=== PATIENT | male | born 1940 | race African-American/Black ===

== ENCOUNTER 2018-07-25 19:28 | Inpatient (IN) | payer OTHER ==
[~2018-07-25] VITALS: Ht 172.7 cm; Wt 64.9 kg
--- NOTE | ~2018-07-25 | HC ---
[facility] [place] [address] CONSULTATION Name: SERGO MCCORMICK Room #: 462-[facility] IN M.R.#: [id number] Admission: 07/25/18 ������������������ Attend Phys: Jose Awan MD Discharge: ������������������ Date of : 40 Report #: [id number] THIS REPORT FOR: //name// CC: Jose Stephens PALLIATIVE CARE CONSULTATION REQUESTING PHYSICIAN: Dr. Awan. HISTORY OF PRESENT ILLNESS: The patient is a 78-year-old male who presented to [facility] on 07/25/2018. He presented at that time with altered mentation. He has a history of vascular dementia, hypertension. He presented from [facility]. He had become nonverbal and inactive. Workup including significant things, chest x-ray and urinalysis were without apparent origin. He was found to have severe bilateral symmetric white matter disease on his CT scan. Subsequent to this, the patient had an MRI performed and he is found to have a significant amount of vascular infarct to his brain. There is extensive bilateral symmetric abnormal FLAIR within the parietal, occipital and posterior temporal lobes, significant effects on his overall mentation and also his ability to complete even the most basic movement or responses. The patient is able to grasp with right hand, but he is not able to follow commands. Per se, he will grasp, but not release. The patient currently is n.p.o., but is not taking p.o. intake, is not responsive in any way. At this time, he does not cooperate for any kind of further examination. His daughter is a decision maker for him, although there are several family members involved in his care. PAST MEDICAL HISTORY: Significant for vascular dementia, history of cerebrovascular disease, also hypertension and insomnia. MEDICATIONS: Amlodipine, Depakote, Zyprexa, Seroquel, trazodone, Ativan. ALLERGIES: No known drug allergies. FAMILY HISTORY: Noncontributory. SOCIAL HISTORY: Again, there is a daughter involved in decision making process for the patient whom I have spoken with today. This is Elisa Fortune, . REVIEW OF SYSTEMS: Unable to obtain at this time due to present medical condition. PHYSICAL EXAMINATION: VITAL SIGNS: These include a temperature of 36.4, pulse 74, respirations 18, blood pressure 166/66, 93% on room air. [facility] [address] [place] [address] CONSULTATION Name: SERGO MCCORMICK Room #: 462-P [facility] IN .R.#: [id number] Admission: 07/25/18 ������������������ Attend Phys: Jose Awan MD Discharge: ������������������ Date of : 40 Report #: [id number] GENERAL: Unable to assess orientation. He is nonresponsive at this time to any kind of stimuli. HEENT: Unable to assess fully at this time due to noncooperation. CARDIOVASCULAR: Regular rate and rhythm without murmur at this time. RESPIRATORY: Anteriorly clear to auscultation bilaterally. ABDOMEN: Soft, diminished bowel sounds. No grimacing to palpation. EXTREMITIES: He will grasp with right hand, but will not release. This does not appear to be following any kind of command directly. LABORATORY DATA: Hemoglobin 13.4, white blood cells 14.2, creatinine 0.9 on the 8th. ASSESSMENT AND PLAN: 1. Cerebrovascular accident. He has had a significant process involved based on his imaging. At this time, I believe the patient would have much difficulty with recovery overall even if he were to get pass this initial episode of unresponsiveness. He is currently not able to take p.o. safely in any way. I have discussed this with daughter at this time and discussed the possibility that a PEG tube placement would not be beneficial given his preexisting dementia prior to having the cerebrovascular accident and that his quality of life would not be supported by this intervention. I have discussed that I would like to meet with his many family as necessary in order to have a decision made as she states that she is not comfortable with making decision alone. I would like to arrange a family meeting. She is in the process of discussing with other family members. She states that it is possible they would have to be as late as early next week prior to having this meeting. I have discussed again also on the possibility of comfort and hospice care at this time, but again she is uncomfortable with making any kind of decision at this time. I did spend approximately 35 minutes in discussion of advanced care planning today. We have not currently changed his code status, although I believe that he would be medically futile to pursue any kind of CPR and/or intubation given his overall medical status. 2. Delirium. Again, this is likely due to significant cerebrovascular accident, currently, unable to give responsiveness. It is possible that the severity of his cerebrovascular accident alone has led to him being unable to respond to us fully and be unable to participate in any significant ADLs in the future, which I have expressed to daughter at this time. I appreciate a Neurology consultation and I appreciate their wanting him to continue aspirin until we have knowledge, otherwise if he were to pursue a palliative care intervention. Did discuss with family that we could continue administering fluids at this time, but again, we would need to have a decision with regards to tube feedings and/or PEG tube placement in order to proceed forward, although I did again discuss with her the likelihood that would not be beneficial to the patient. Thank you very much for the consultation. I will update when I know more [facility] [address] [place] [address] CONSULTATION Name: SERGO MCCORMICK Room #: 462-P ADM IN M.R.#: [id number] Admission: 07/25/18 ������������������ Attend Phys: Jose Awan MD Discharge: ������������������ Date of : 40 Report #: [id number] information. I have given her my contact information to call me back with regards to setting up a family meeting. ��������������������������������������������� ���������������������������������������� By: ��������������������������������������������� 58 58 Maldonado Hussein DO /gaston
[2018-07-25 19:29] VITALS: BP 140/83
[2018-07-25 20:07] LABS: HEMATOCRIT 41.9 % (42.0-52.0); MCHC 33.5 g/dL (28.0-37.0); MCV 92.5 fL (80.0-100.0); RBC 4.53 mil/uL (4.50-6.00); RDW 13.7 % (10.5-14.5); WBC 15.5 thou/uL (4.0-11.0)
[2018-07-25 20:09] LABS: AMP/METHAMP Negative (Negative); BARBITURATES Negative (Negative); BENZODIAZEPINES Negative (Negative); COCAINE Negative (Negative); METHADONE Negative (Negative); OPIATES Negative (Negative); PCP Negative (Negative)
[2018-07-25 20:16] LABS: ANION GAP 9 mmol/L (7-16); BUN 21 mg/dL (7-18); CALCIUM 9.1 mg/dL (8.5-10.1); CHLORIDE 105 mmol/L (98-107); CO2 30 mmol/L (21-32); CREATININE 1.2 mg/dL (0.7-1.3); GLUCOSE 106 mg/dL (74-106); POTASSIUM 3.5 mmol/L (3.5-5.1); SODIUM 144 mmol/L (136-145)
[2018-07-25 20:25] LABS: TROPONIN-I <0.06 ng/mL (<0.06)
[2018-07-26 00:19] VITALS: BP 166/82
[2018-07-26] MEDS ORDERED: NORVASC5 MG PO (00:22)
[2018-07-26] MEDS ORDERED: ZYPREXA2.5 MG PO (00:23)
[2018-07-26] MEDS ORDERED: DEPAKOTE125 MG PO (00:23)
[2018-07-26] MEDS ORDERED: TRAZODONE HCL50 MG PO (00:24)
[2018-07-26] MEDS ORDERED: SEROQUEL 25 MG25 M1 PO (00:24)
[2018-07-26] MEDS ORDERED: ARTIFICIAL TEAR15 M1 OPHTHALMIC (00:25)
[2018-07-26] MEDS ORDERED: LORAZEPAM 22 MG/1 ML IM (00:26)
[2018-07-26 01:15] VITALS: BP 171/88
[2018-07-26 01:31] LABS: URINE BILIRUBIN NEGATIVE (Negative); URINE BLOOD 2+ (Negative); URINE CLARITY CLEAR; URINE COLOR YELLOW; URINE GLUCOSE-RANDOM* TRACE (Negative); URINE KETONES 2+ (Negative); URINE LEUKOCYTES-REFLEX NEGATIVE (Negative); URINE NITRITE-REFLEX NEGATIVE (Negative); URINE PROTEIN (DIPSTICK) TRACE (Negative)
[2018-07-26 01:39] LABS: SQUAMOUS 0-3 Few /LPF (0-3); URINE WBC-REFLEX 0-5 Rare /HPF (0-5)
[2018-07-26 01:40] LABS: BACTERIA-REFLEX 1-9 Few /HPF (None Seen); CASTS None Seen /LPF (None Seen); CRYSTALS None Seen /LPF (None Seen); MUCUS 0-3 Light strn/LPF (None Seen); URINE RBC 3-10 Few /HPF (0-2)
[2018-07-26 03:47] VITALS: BP 159/66
--- NOTE | 2018-07-26 04:24 | NUR ---
admit pt admitted from ed with ams, elevated wbc, and elevated crp. pt non responsive, to verbal stimuli, does pull away from painful stimuli. skin clean dry intact, valencia placed, tele intact reading sr, ivf's infusing as ordered continue poc.
[2018-07-26 05:37] LABS: HEMOGLOBIN 13.4 gm/dL (14.0-18.0); MCH 31.2 pg (26.0-34.0); MCHC 33.6 g/dL (28.0-37.0); MCV 92.8 fL (80.0-100.0); RBC 4.31 mil/uL (4.50-6.00); RDW 13.5 % (10.5-14.5); WBC 14.2 thou/uL (4.0-11.0)
[2018-07-26 05:56] LABS: ALBUMIN 2.5 g/dL (3.4-5.0); CALCIUM 8.3 mg/dL (8.5-10.1); CREATININE 0.9 mg/dL (0.7-1.3); POTASSIUM 3.6 mmol/L (3.5-5.1); TOTAL BILIRUBIN 0.4 mg/dL (<0.1-1.0); TOTAL PROTEIN 6.9 g/dL (6.4-8.2)
[2018-07-26 07:00] LABS: FOLIC ACID 17.9 ng/mL (8.6-58.9); TSH 0.668 uIU/mL (0.358-3.740)
[2018-07-26 07:07] VITALS: BP 140/67
--- NOTE | 2018-07-26 13:08 | NUR ---
TOWARDS POC PT WAS UNRESPONSIVE TO VERBAL COMMAND THIS AM. REASSESSMENT THIS NOON DONE, PT ABLE TO WAKE UP AND RESPOND TO VERBAL STIMULI. PT SEEMS LETHARGIC. FALL BUNDLE IN PLACE, MRI RESULTS ARE IN. WILL CONTINUE TO MONITOR.
[2018-07-26 13:55] VITALS: BP 178/83
--- NOTE | 2018-07-26 14:16 | EKG ---
[address] [address] ELECTROCARDIOGRAM REPORT Name: SERGO MCCORMICK Room #: 458-P ADM IN M.R.#: [id number] ������������������ Admission: 07/25/18 ������������������ Attend Phys: Jose Awan MD Discharge: ������������������ Date of : 40 Report #: [id number] ����������������������������������������������������������������� [id number] THIS REPORT FOR: //name// [facility] ED Test Date: 2018-07-25 Test Time: 20:41:40 Pat Name: SERGO MCCORMICK Department: Room: [facility] Gender: M Sales Promotion Coordinator: farideh : 1940 Requested By: Bakari Fierro Order Number: [id number] MD: Joseluis Gonsalves Measurements Intervals [place] Rate: 90 P: 67 NM: 129 QRS: 16 QRSD: 86 T: 56 QT: 350 QTc: 429 Interpretive Statements Sinus rhythm Atrial premature complex RSR' in V1 or V2, probably normal variant Left ventricular hypertrophy with repolarization abnormality No previous ECG available for comparison Electronically Signed On 07-26-2018 14:16:27 CDT by Joseluis Gonsalves [email or web address] ��������������������������������������������� <ELECTRONICALLY SIGNED> ���������������������������������������� By: Joseluis Gonsalves MD, [facility] ��������������������������������������������� 07/26/18 1416 40 40 Joseluis Gonsalves MD, [facility] /EPI
[2018-07-26 16:55] LABS: APTT 28.8 Seconds (24.5-32.8); INR 1.2; PROTIME 12.9 Seconds (9.3-11.4)
[2018-07-26 18:58] VITALS: BP 144/64
[2018-07-27 03:04] VITALS: BP 169/78
--- NOTE | 2018-07-27 03:38 | NUR ---
ASSUMED CARE AROUND 1900. OPENS EYES SPONTANEOUSLY. NON VERBAL. DOES NOT FOLLOW ANY COMMAND. IV REPLACED. RVP COLLECTED. VELASQUEZ INTACT. NO S/S ACUTE DISTRESS NOTED OR REPORTED AT THIS TIME. WILL CONT TO MONITOR FOR ANY CHANGES IN CONDITION.
[2018-07-27 07:12] VITALS: BP 163/61
[2018-07-27 08:07] LABS: LYME ANTIBODY SCREEN* <0.91 ISR (0.00-0.90)
--- NOTE | 2018-07-27 09:53 | NUR ---
Nutrition: Admitted wtih AMS, elevated WBC, elevated CRP. Seen for clemente score 15. Hx of dementia. Diet NPO, EEG/MRI this AM. Spoke with dtr for assessment. States pt appetite has been lower recently, but is usually good with good intake. Typically eats protein foods. Unsure of UBW. Current 152 lbs with BMI 23=normal. Reports 30 lbs wt loss x1 year after dementia dx due to decrease in appetite-16.5%. Unsure if pt drinks supplements at SNF. Will order Ensure once diet advances. Low nutrition risk for now.
--- NOTE | 2018-07-27 10:07 | HC ---
[facility] [place] [address] CONSULTATION Name: SERGO MCCORMICK Room #: 458-P ADM IN M.R.#: [id number] Admission: 07/25/18 ������������������ Attend Phys: Jose Awan MD Discharge: ������������������ Date of : 40 Report #: [id number] THIS REPORT FOR: //name// CC: Jose Stephens DATE OF SERVICE: 07/26/2018 INFECTIOUS DISEASE CONSULTATION: REASON FOR CONSULTATION: Evaluate possible meningoencephalitis. HISTORY OF PRESENT ILLNESS: The patient is a 78-year-old with underlying vascular dementia, hypertension who was transferred from the custodial with change in mental status. Typically, he is alert and oriented and verbal, reasonably active. Over the last 24 hours, he has become nonverbal and inability to respond appropriately. He was brought into the Emergency Room. He has had temperature up to 38.2 degrees. He has got leukocytosis. He is unable to give any information. He resists any movements. There has been no nausea or vomiting. There has been no cough. No diarrhea. He now has an indwelling Munguia catheter. There has been no injury of note. There have been no rashes or decubiti reported. There has been no travel. There was some report of influenza at the custodial previously. Unclear if he was on antiviral prophylaxis. The patient was unable to give any further details regarding review of systems. ALLERGIES: None. MEDICATIONS: As noted on his MAR, having been started last evening on vancomycin, ceftriaxone and ampicillin. PAST MEDICAL HISTORY: Vascular dementia with behavioral disturbance, hypertension, urinary incontinence, vitamin D deficiency, insomnia. FAMILY HISTORY: Noncontributory. SOCIAL HISTORY: Nonsmoker, no significant alcohol intake. No reported tuberculosis exposure. No history of HIV. PHYSICAL EXAMINATION: VITAL SIGNS: Afebrile, vital signs were stable. GENERAL: He was awake, but only would answer mumbling. He would not follow commands. SKIN: Without rash or decubitus. HEENT: No palpable adenopathy. He had increased muscle tone throughout. [facility] [address] [place] [address] CONSULTATION Name: SERGO MCCORMICK Room #: [address] [place] [address] IN M.R.#: [id number] Admission: 07/25/18 ������������������ Attend Phys: Jose Awan MD Discharge: ������������������ Date of : 40 Report #: [id number] EYES: With mild conjunctivitis on the right. MOUTH: Without mucositis. NECK: Similar to the rest of his increased muscle tone. Did not appear tender to flexion. No palpable adenopathy or thyromegaly. CHEST: Clear. HEART: Regular, without murmur, gallop or rub. ABDOMEN: Soft, no hepatosplenomegaly or mass appreciated. GENITOURINARY: External genitalia without mass or lesion, has an indwelling Munguia catheter. RECTAL: Not performed. NEUROLOGIC: Very difficult to have the patient roll over. He resisted any movement. He had good strength throughout upper and lower extremities. Had difficulty bending his extremities. Reflexes appeared normal. Unable to assess sensation. Mood was sedate. LABORATORY STUDIES: CT scan of the head showed diffuse changes consistent with PRES syndrome. MRI scan showed diffuse changes more consistent with ischemia. CT angio of the neck was negative. Abdominal x-ray and chest x-ray were negative. Sodium 144, potassium 3.6, bicarbonate 28, creatinine 0.9. Liver function test normal. Ammonia 14, albumin 2.5. Hemoglobin 13.4, platelet count 237,000, white count 14.2. Urinalysis 2+ ketones, 2+ blood. Lactate was 2.2. IMPRESSION: A 78-year-old with underlying dementia with acute change in mental status and diffuse cerebral changes most consistent with vascular insult. His fever and leukocytosis; however, does not fit with this current presentation. We will still need to rule out infectious cause. Blood cultures have been obtained. Lumbar puncture was attempted last night, but unable to obtain any fluid. Would be concerned about viral, bacterial and fungal etiologies. RECOMMENDATION: We will continue empiric antibiotic coverage. Obtain lumbar puncture. Neurology to evaluate. Obtain EEG. Also, check serologic studies. We will adjust his antibiotics pending lumbar puncture. ��������������������������������������������� <ELECTRONICALLY SIGNED> ���������������������������������������� By: Mumtaz Lopez MD ��������������������������������������������� 07/27/18 1007 1429 0318 Mumtaz Lopez MD /nt
[2018-07-27 11:28] LABS: CSF PROTEIN 183 mg/dL (15-45); VOLUME 12 ml
[2018-07-27 11:29] LABS: CSF COLOR COLORLESS
[2018-07-27 11:30] LABS: CSF CLARITY CLEAR; CSF RBC 4 /mm3; CSF WBC 2 /mm3 (0-10)
[2018-07-27 14:40] VITALS: BP 153/70
--- NOTE | 2018-07-27 14:44 | NUR ---
TOWARDS POC PT ALERT AND AWAKE AT THIS MOMENT, FIDGETING ON BLANKETS. PT HAD HIS LUMBAR PUNCTURE THIS AM, AWAITING RESULTS. NEUROLOGIST SPOKE TO ANDREEA THIS AM. ANDREEA WANTED TO TALK TO HOSPITALIST TOMORROW. FALL BUNDLE IN PLACE, WILL CONTINUE TO MONITOR.
--- NOTE | 2018-07-27 15:18 | NUR ---
REFERRAL WAS SENT TO [facility] MCDERMOTT WITH [facility] HAD MENTIONED THEM TO PT AND FAMILY. CM SPOKE WITH COURTNR[facility] THEIR LIAISON AND SHE INDICATED THAT THEY CAN ACCEPT HIM MEDICALLY AND THAT SHE WILL VISIT PT TOMORROW MORNING. PT IS AWARE. CM TO FOLLOW INDICATED WITH DC PLANNING.
--- NOTE | 2018-07-27 15:27 | 2DMMODE ---
[facility] [address] [place] [address] 2 D/M-MODE ECHOCARDIOGRAM Name: SERGO MCCORMICK Room #: 458-P [facility] IN .R.#: [id number] ������������� Admission: 07/25/18 ������������� Attend Phys: Jose Awan MD Discharge: ��� ������������� ��� Date of : 40 Date of Service: 07/27/18 1527 �� Report #: [id number] �������� ��������������������������������������������[id number] THIS REPORT FOR: //name// APPROVED REPORT Study performed: 07/27/2018 13:42:35 EXAM: Comprehensive 2D, Doppler, and color-flow Echocardiogram Patient Location: Bedside Room #: [facility] Status: routine BSA: 1.82 HR: 76 bpm BP: 163/61 mmHg Rhythm: NSR, PVCs Other Information Study Quality: Good Technically limited study due to highly uncooperative patient. Not all measurements taken. Indications CVA Echo Enhancing Agent Indication: Rule out Shunt Agent(s) / Amount(s) Used: Agitated Saline 6 cc 2D Dimensions IVSd: 11.76 (7-11mm) LVOT Diam: 21.27 (18-24mm) LVDd: 41.03 mm PWd: 11.80 (7-11mm) LVDs: 28.86 (25-40mm) Aortic Root: 32.85 mm Aortic Valve AoV Peak Nickolas.: 1.32 m/s AO Peak Gr.: 6.97 mmHg LVOT Max P.70 mmHg LVOT Max V: 0.96 m/s HECTOR Vmax: 2.59 cm2 Mitral Valve E/A Ratio: 0.8 MV Decel. Time: 233.72 ms MV E Max Nickolas.: 0.61 m/s [facility] [address] [place] [address] 2 D/M-MODE ECHOCARDIOGRAM Name: SERGO MCCORMICK Room #: 458-P ADM IN .R.#: [id number] ������������� Admission: 07/25/18 ������������� Attend Phys: Jose Awan MD Discharge: ��� ������������� ��� Date of : 40 Date of Service: 07/27/18 1527 �� Report #: [id number] �������� ��������������������������������������������[id number] MV A Nickolas.: 0.73 m/s MV PHT: 67.78 ms Pulmonary Valve PV Peak Nickolas.: 1.24 m/s PV Peak Gr.: 6.16 mmHg Tricuspid Valve TR Peak Nickolas.: 2.71 m/s RAP Estimate: 5.00 mmHg TR Peak Gr.: 29.31 mmHg PA Pressure: 34.00 mmHg Left Ventricle The left ventricle is normal size. There is normal LV segmental wall motion. Mild concentric left ventricular hypertrophy. Left ventricular systolic function is normal. LVEF is 60-65%. Mild diastolic dysfunction is present (impaired relaxation pattern). Right Ventricle The right ventricle is normal size. The right ventricular systolic function is normal. Atria The left atrium size is normal. No shunting noted by contrast bubble injection. The right atrium size is normal. Aortic Valve Aortic valve leaflets are mildly thickened, trileaflet. No aortic regurgitation. There is no aortic valvular stenosis. Mitral Valve The mitral valve is normal in structure. Mild mitral regurgitation. Tricuspid Valve The tricuspid valve is normal in structure. Trace tricuspid regurgitation. Estimated PAP is 35mmHg. Pulmonic Valve Pulmonic valve is not well visualized. There is no pulmonic valvular regurgitation. Great Vessels The aortic root is normal in size. Ascending aorta is not well visualized. IVC is normal in size and collapses >50% with inspiration. [facility] [address] [place] [address] 2 D/M-MODE ECHOCARDIOGRAM Name: SERGO MCCORMICK Room #: 458-P ADM IN M.R.#: [id number] ������������� Admission: 07/25/18 ������������� Attend Phys: Jose Awan MD Discharge: ��� ������������� ��� Date of : 40 Date of Service: 07/27/18 1527 �� Report #: [id number] �������� ��������������������������������������������[id number] Pericardium There is no pericardial effusion. <Conclusion> Left ventricular systolic function is normal. There is normal LV segmental wall motion. LVEF is 60-65%. Mild diastolic dysfunction No shunting noted by contrast bubble injection. Aortic valve leaflets are mildly thickened, trileaflet. No aortic regurgitation or stenosis. The mitral valve is normal in structure. Mild mitral regurgitation. Trace tricuspid regurgitation. Estimated pulmonary artery pressure of 35mmHg. There is no pericardial effusion. ��������������������������������������������� <ELECTRONICALLY SIGNED> ���������������������������������������� By: Joseluis Gonsalves MD, [facility] ��������������������������������������������� 07/27/18 1527 1527 1527 Joseluis Gonsalves MD, FAC /INF
--- NOTE | 2018-07-27 16:40 | NUR ---
PT ADMITTED RELATED TO ams,elevated wbc, elevated crp. CM REVIEWED CHART AND SPOKE WITH CARE TEAM. CM MET WITH PT AT BEDSIDE THIS DAY. PT WASN'T ABLE TO ANSWER ASSESSMENT QUESTIONS. CM ATTEMPTED TO CONTAT PT'S DPOA JONITA AND CM LEFT TWO VOICEMAILS AND HASN'T YET RECIEVED A RESPONSE. IT IS ANTIPCATED THAT PT IS TO RETURN TO [facility] ONCE MEDICALLY STABLE. CM TO FOLLOW INDICATED WITH DC PLANNING.
[2018-07-27 19:10] LABS: SYPHILIS AB Negative (Negative)
[2018-07-27 20:13] VITALS: BP 174/68
--- NOTE | 2018-07-28 06:44 | NUR ---
Assumed care at 1845. Pt resting in bed. VSS. AOX1. None verbal. On bedrest. Munguia intact. Family at bedside. No identified needs at the moment. Will continue to monitor.
[2018-07-28 07:30] VITALS: BP 167/73
[2018-07-28 13:55] VITALS: BP 166/66
--- NOTE | 2018-07-28 14:15 | NUR ---
DR. RODRIGEZ WAS CONSULTED AND HE SPOKE WITH PT'S DTR ABOUT PALLIATIVE CARE SERVICES. IT WAS INDCIATED THAT SHE IS INTERESTED IN HAVING A FAMILY MEETING EARLY NEXT WEEK. PHYSICIAN WAS NOTIFIED. CM TO FOLLOW INDICATED WITH DC PLANNING.
--- NOTE | 2018-07-28 19:46 | NUR ---
ASSUMED CARE 0700. SEDATED THIS MORNING. BECAME ALERT AFTER 1500. DOES NOT RESPOND TO NAME. NON-VERBAL. WILL PULL AT VELASQUEZ USES PILLOW TO DISTRACT PT FROM PULLING. MOVED PT CLOSER TO NURSING STATION FOR OVERSIGHT. FALL PRECAUTIONS IN PLACE. DOES NOT USE CALL LIGHT.
[2018-07-28 20:09] VITALS: BP 152/78
[2018-07-29 04:52] VITALS: BP 148/59
--- NOTE | 2018-07-29 07:44 | NUR ---
patient alert, oriented this shift. no s/s of pain or discomfort. pericare and barrier cream applied as needed. cath care done this shift. patient turned q shift. patient in bed asleep at this time breathing regular and unlaboured.
[2018-07-29 07:47] VITALS: BP 175/61
[2018-07-29 15:00] VITALS: BP 187/54
[2018-07-29 19:29] VITALS: BP 174/55
--- NOTE | 2018-07-29 19:31 | NUR ---
ASSUMED CARE 0700. SLEEPING UNTIIL 1400. PT NON VERBAL. BATH GIVEN. REPOSITIONS PATIENT TOLERATED. FULL FALL PRECATIONS IN PLACE. CLOSE TO NURSE STATION FOR OVERSIGHT DOESN'T USE CALL LIGHT.
--- NOTE | 2018-07-30 03:40 | NUR ---
PATIENT AOX1 CONFUSED AND FORGETFUL. PATIENT IS NO VERBAL PERICARE AND BARRIER CREAM APPLIED NEEDED. PATIENT TURNED Q 2 HOURS. PATIENT IN BED ASLEEP AT THIS TIME BREATHING REGULAR AND UNLABOURED.
[2018-07-30 07:05] VITALS: BP 167/92
[2018-07-30 13:06] LABS: HSV 1 DNA Negative (Negative); HSV 2 DNA Negative (Negative)
[2018-07-30 15:05] VITALS: BP 155/81
--- NOTE | 2018-07-30 15:35 | NUR ---
ASSUMED CARE 0700. SLEPT THROUGH MORNING AND BECAME ALERT AFTER 1400, REQUIRES REPOSITONS AND DIVERSION FORM PULLING VELASQUEZ AND IV LINES. FAMILY BEDSIDE AT THIS TIME. FALL PRECAUTIONS IN PLACE.
[2018-07-30 19:55] VITALS: BP 153/64
[2018-07-31 06:08] VITALS: BP 151/62
--- NOTE | 2018-07-31 06:31 | NUR ---
PATIENT IS NON VERBAL. ALERT AND ORIENTED. NO S/S OF PAIN OR DISCOMFORT. TURNED Q 2 HOURS. CATH CARE DONE, PERICARE AND BARRIER CREAM APPLIED THIS SHIFT. PATIENT IN BED ASLEEP AT THIS TIME BREATHING REGULAR AND UNLABOURED.
[2018-07-31 07:48] VITALS: BP 157/78
[2018-07-31 10:40] LABS: HSV PCR SOURCE CSF
--- NOTE | 2018-07-31 13:11 | NUR ---
DP SENT REFERRAL TO HOSPICE HOUSE, PATIENT READY FOR DC TODAY.
--- NOTE | 2018-07-31 14:00 | NUR ---
BRI CM CALLED AND SPOKE [facility] PT'S DTR ODELL AND SHE INDICATED THAT SHE HAD DISCUSSED WITH PHYSICIAN AND FAMILY AND THAT THEY ARE RECEPTIVE TO HOSPICE COMING OUT AND ASSESSING PT FOR POSSIBLE ADMISSION TO HOSPICE HOUSE. CM INDICATED THAT IF PT WASN'T APPROPRIATE FOR HOUSE ADMISSION THAT AN ALTERNATIVE DC PLAN WOULD BE FOR PT TO GO TO A FACILITY LIKE BACK TO [facility] WITH HOSPICE SERVICES. SHE INDICATED SHE DIDN'T WANT PT RETURNING TO [facility]. CM EMAILED HER LIST OF SKILLED FACILITIES TO REVIEW TO DETERMINE WHERE THEY WAN REFERRALS SENT. CM TO FOLLOW INDICATED WITH DC PLANNING.
[2018-07-31 15:21] VITALS: BP 139/70
--- NOTE | 2018-07-31 16:16 | NUR ---
HOMER INDICATED THAT PT DOESN'T MEET CRITERIA TO ADMIT TO THE HOSPICE HOUSE AT THIS TIME. SHE STATED THAT ALTHOUGH PT HAS SYMPTOMS HE ISN'T BEING TREATED FOR THEM RIGHT NOW. BRI NOTIFIED PT'S DTR AND SHE ASKED THAT REFERRAL BE SENT TO [facility] FOR REVIEW FOR POSSIBLE ADMISSION. BRI CALLED AND SPOKE WITH VLADIMIR THERE AND SHE INDICATED THEY MIGHT HAVE A MALE MEDICAID BED OPEN TOMORROW. REFERRAL FAXED. CM TO FOLLOW INDICATED WITH DC PLANNING.
[2018-07-31 19:11] LABS: ADENOVIRUS Negative (Negative); INFLUENZA A Negative (Negative); INFLUENZA B Negative (Negative); METAPNEUMOVIRUS Negative (Negative); PARAINFLUENZA 1 Negative (Negative); PARAINFLUENZA 2 Negative (Negative); PARAINFLUENZA 3 Negative (Negative); RHINOVIRUS Negative (Negative); RSV A Negative (Negative); RSV B Negative (Negative)
[2018-07-31 19:31] VITALS: BP 162/51
--- NOTE | 2018-07-31 20:10 | NUR ---
ASSUMED CARE 0700. PT NON-RESPONSIVE TO NAME ONLY PAIN STIMULI. SLEEPING THIS MORING AWAKENED APPROXIMATLY 1400. BECOMES RESTLESS WITH MINIMAL DIVERSION. FALL PRECAUTIONS IN PLACE. DOES NOT USE CALL LIGHT.
[2018-08-01 04:15] VITALS: BP 166/65
[2018-08-01 07:44] VITALS: BP 162/53
[2018-08-01 14:45] VITALS: BP 154/58
--- NOTE | 2018-08-01 17:09 | NUR ---
CM CALLED [facility] TWICE THIS DAY TO CHECK IN STATUS OF REFERRAL. THEY WERE STILL REVIEWEING IT. VLADIMIR CALLED BACK THIS AFTERNOON AND INDICATED THAT THEY AREN'T ABLE TO ACCEPT PT FOR ADMISSION. CM CALLED PT'S DTR AND LEFT A VOICEMAIL REQUESTING ADDITIONAL FACILITIES THEY WOULD LIKE REFERRALS SENT TO. CM TO FOLLOW INDICATED WITH DC PLANNING.
[2018-08-01 19:53] VITALS: BP 145/75
--- NOTE | 2018-08-01 19:57 | NUR ---
PT A&O TO SELF, NO SIGNS OF PAIN, VSS. PT HAS RESTED IN BED WITH NO ANXIETY OR AGITATION. FAMILY HAS BEEN UP TO VISIT PT. PER HOSPICE HOUSE, PT IS NOT A CANDIDATE. IV AND VELASQUEZ PATENT, NO SIGNS OF DISTRESS. BED IN LOWEST POSITION WITH ALARM ON. WILL CONTINUE TO MONITOR.
[2018-08-02 04:37] VITALS: BP 139/64
[2018-08-02 07:55] VITALS: BP 153/79
--- NOTE | 2018-08-02 09:18 | NUR ---
F/U: MRI showed global ischemic stroke. Pt previously not responsive to stimuli but has shown slight improvement. Hospice house denied pt admission. Unclear if comfort care decision has been made by family. Per EMR, likely transfer to SNF. Pt was NPO x6 days due to unresponsiveness. Seen by ST 08/01, moderate oropharyngeal dysphagia. Diet advanced to pureed/nectar thick liquid. Question of PEG placement, however does not appear to be recommended. Per nsg, pt NPO this morning. No new wt to assess, requested updated. Supplements order when diet advanced. Will hold off on REC until further care decision has been made.
--- NOTE | 2018-08-02 10:40 | NUR ---
DISCHARGE PLANNING. ANTICIAPTED DISCHARGE FOR TODAY. PATIENT IN NEED OF HUMAN SERVICES CASE MANAGER CARE PLACEMENT. SPOKE WITH [facility], [facility] DOES NOT HAVE ANY LTC BEDS AVAILABLE AT THIS TIME. SPOKE WITH [facility] SWANSON AT [facility], STATES [facility] DOES NOT HAVE ANY LTC BEDS AVAILABLE AT THIS TIME AND HAS A WAITING LIST OF 6-12 MONTHS. CALL PLACED TO [facility], STATES THEY DO HAVE LTC BEDS AVAILABLE. REFERRAL FAXED TO [facility] FOR REVIEW. [facility] TO NOTIFY CM ONCE REVIEW COMPLETE. FOLLOWING TO ASSIST WITH DISCHARGE PLACEMENT NEEDS. UNIT CM/SW AWARE.
[2018-08-02 13:55] VITALS: BP 151/63
--- NOTE | 2018-08-02 15:44 | NUR ---
PT'S DTR HAD ASKED THAT REFERRAL BE SENT TO [facility], [facility], AND [facility]. [facility] AND [facility] DON'T HAVE BEDS OPEN. [facility] IS REVIEWEING REFERRAL. CM TO FOLLOW INDICATED WITH DC PLANNING.
--- NOTE | 2018-08-02 19:20 | NUR ---
PT A&O TO SELF, VSS, NO SIGNS OF PAIN OR DISTRESS. PT IN BED AND HAS BEEN TURNED MUCH POSSIBLE. PT IS VERY RIGID AND PUSHES AGAINST TURNS AND GRABS ONTO YOU. NO SKIN BREAKDOWN NOTED ON COCCYX. PT HAS HAD A BED BATH TODAY. DIET HAS BEEN ADVANCED TO PUREED IN WHICH PT HAS TOLERATED WELL. PT HAS BEEN SLEEPING OFF AND ON TODAY AND OTHERWISE PLEASANT. WILL CONTINUE T0 MONITOR.
[2018-08-02 19:57] VITALS: BP 150/70
--- NOTE | 2018-08-03 03:46 | NUR ---
RESTED ON AND OFF, BM X2, INCONTINENT OF BOWEL, VELASQUEZ CATH PATENT DRAINING TO ELIGIO URINE, MOVES A LOT IN BED, BED ALARM ON, ATTEMPT TO PULL VELASQUEZ AND TELE LEADS, HOURLY ROUNDING DONE, ORAL CARE WAS GIVEN, PT LIKES TO GRAB AT STAFF, SCDS TO BLE, MONITORED.
[2018-08-03 04:08] VITALS: BP 172/94
[2018-08-03 04:51] VITALS: BP 155/52
[2018-08-03 07:28] VITALS: BP 145/61
[2018-08-03] MEDS ORDERED: ASPIRIN325 PO (12:05)
[2018-08-03] MEDS ORDERED: LIPITOR10 MG PO (12:05)
--- NOTE | 2018-08-03 12:24 | NUR ---
TOWARDS POC PT ALERT/AWAKE. NON VERBAL. VSS, AFEBRILE, NO APPARENT PAIN. FAMILY AT BEDSIDE AT TIMES. NO CONCERNS VOICED, PT AWAITING FOR PLACEMENT ON DC.
[2018-08-03 14:25] VITALS: BP 153/63
--- NOTE | 2018-08-03 15:35 | NUR ---
[facility] INDICATED THAT THEY WOULDN'T BE ABLE TO ACCEPT PT. CARE TEAM INDICATED THAT PT IS MEDICALLY STABLE TO DC. CM NOTIFIED PT'S DTR OF THE ABOVE AND THAT AT THIS TIME [facility] [place] [place] WE DIDN'T HAVE ANOTHER ACCEPTING FACILITY THAT PT WOULD NEED TO RETURN TO [facility]. SHE STATED SHE DIDN'T WANT PT RETURNING THERE AND THAT SHE HAD AN ACTIVE LAW SUITE AGAINST THEM OF TUESDAY. SHE ASKED THAT REFERRALS BE SENT TO [facility], [facility], [facility], AND [facility]. PT'S DTR IS AWARE THAT IF NONE OF THE ABOVE FACILITIES ARE ACCEPTING THAT PT MUST RETURN TO [facility] TOMORROW. [facility] WERE SENT. CM TO FOLLOW INDICATED WITH DC PLANNING.
[2018-08-03 21:24] VITALS: BP 177/66
--- NOTE | 2018-08-04 03:59 | NUR ---
Pt. has rested quietly at intervals during the night when checked on during frequent rounds. He is non-verbal, but responds to tactile stimuli. Pt. attempts to push you away with direst care. Bed alarm is on.
[2018-08-04 05:35] VITALS: BP 153/68
[2018-08-04 07:45] VITALS: BP 150/99
--- NOTE | 2018-08-04 14:06 | HC ---
[facility] [place] [address] CONSULTATION Name: SERGO MCCORMICK Room #: 462-P ADM IN M.R.#: [id number] Admission: 07/25/18 ������������������ Attend Phys: Jose Awan MD Discharge: ������������������ Date of : 40 Report #: [id number] THIS REPORT FOR: //name// CC: Jose Stephens DATE OF SERVICE: 07/26/2018 HISTORY OF PRESENT ILLNESS: This is a 78-year-old male patient who was discussed with the family. I talked to the Emergency Room physician last night. The patient lives [place] and has underlying dementia. He was admitted with alteration in mental status. That is difficult to assess because the patient's baseline is not known or clear. Apparently, flu-like symptoms have been prevalent in the facility this patient resides. Emergency Room physician has attempted to do a spinal tap last night, but they were unsuccessful. They have already consulted ID and covered the patient with antimicrobial for the time being. The patient is not any better. REVIEW OF SYSTEMS: Positive for dementia. He has been diagnosed with vascular dementia. He does have a history of hypertension, insomnia, and vitamin D deficiency. The family is here and I talked to them on multiple aspects of that. PAST MEDICAL HISTORY: Positive for dementia, but the patient's condition has deteriorated. He is on a valproic acid, but it is not clear whether he ever had a seizure and it looks like it was more likely secondary to agitation. FAMILY HISTORY: Negative for early age stroke. SOCIAL HISTORY: The patient lives in [place]. PHYSICAL EXAMINATION: NEUROLOGIC: Pretty limited. He does not open his eyes. He does not follow any commands. In fact, he does not do anything. I tried to look at his fundus and the pupil and he will not cooperate. CARDIAC: Appears unremarkable. RESPIRATORY: No respiratory difficulty is noticed. GENERAL: He is a moderately built individual who does not have any dysmorphic features of eyes, ears and face. VITAL SIGNS: His blood pressure is 140/67, respiration is 18, pulse is 84, and temperature is 99.1. LABORATORY DATA: His white count is 14.2. His CT scan was reviewed and it looks like it shows white matter changes. IMPRESSION: Pretty difficult to form in this patient because we do not know how [facility] [address] [place] [address] CONSULTATION Name: SERGO MCCORMICK [facility]: 2[facility] IN .R.#: [id number] Admission: 07/25/18 ������������������ Attend Phys: Jose Awan MD Discharge: ������������������ Date of : 40 Report #: [id number] much his symptoms are old and how much is new. His baseline mental status is unknown. I suggested doing an MRI and try to figure out if there are any acute changes. ID is going to see him for any evaluation for any infection. After the workup is available, we will talk to the family what we found and how aggressive to be in this patient. Total time spent 50 minutes, majority of that was spent counseling and coordinating. ��������������������������������������������� <ELECTRONICALLY SIGNED> ���������������������������������������� By: Jarvis Kingston MD ��������������������������������������������� 08/04/18 1406 [id number] 2030 Jarvis Kingston MD /nt
--- NOTE | 2018-08-04 14:07 | EEG ---
[facility] [place] [address] [place] [address] ELECTROENCEPHALOGRAM Name: SERGO MCCORMICK Room #: 462-P ADM IN M.R.#: [id number] ������������������ Admission: 07/25/18 ������������������ Attend Phys: Jose Awan MD Discharge: ������������������ Date of : 40 Report #: [id number] ����������������������������������������������������������������� [id number] THIS REPORT FOR: //name// CC: [facility] DATE OF SERVICE: 07/26/2018 INTERPRETATION: This patient is being evaluated for altered mental status. EEG was done by placing the electrode by standard 10-20 system of electrode placement. Both referential and sequential montages were used for recording. Background activity in this patient's EEG is extremely disorganized and poorly formed. It appeared to be about 6 Hz and 30 microvolts. Photic stimulation is unremarkable. IMPRESSION: This is a severely abnormal EEG because it is poorly formed. That is a nonspecific abnormality, which can occur with encephalopathy, effect of psychotropic medication, diffuse insult to the brain, etc. Clinical correlation is recommended. ���������������������������������������� <ELECTRONICALLY SIGNED> ���������������������������������������� By: Jarvis Kingston MD ��������������������������������������������� 08/04/18 1407 [id number] 1927 Jarvis Kingston MD /nt
[2018-08-04 16:35] VITALS: BP 162/83
--- NOTE | 2018-08-04 16:40 | NUR ---
[facility] IS SERIOUSLY CONSIDERING ADMITTING PT BUT THEY INDICATED DTR IS TOURING TOMORROW AND THEY WOULD LIKE TO DO AN ONSIGHT VISIT TUESDAY. CM NOTIFIED CM ZONING ENGINEER. CM TO FOLLOW INDICATED WITH DC PLANNING.
--- NOTE | 2018-08-04 17:19 | NUR ---
Received asleep on bed. With Saline lock at Right AC. On room air. With valencia in situ, secured and draining well. Patient turned regularly every 2 hours. Falls risk, bed alarm on, side rails in use, protocol observed. Patient assisted in ADLs especially in feeding. Visited by relative today. Daughter called in this AM looking for manager case, mentioned that she doesnt want her dad to go back to same placement, and wants to be involved in looking for a new place for her dad- BRI Recinos informed of what the patient's daughter said. Vital signs stable.
[2018-08-04 20:50] VITALS: BP 211/129
--- NOTE | 2018-08-05 00:04 | NUR ---
Assumed pt care at around 2330hrs. Pt with eyes closed and non verbal. Pt is really stiff. Refusing to be repositioned to the r side. I attempted to roll him over gently, but pt grabbed at my wrist and refused to let go. He seems agitated by any touch. Munguia is in place.He is shaking, so i will get him some warm blankets. At this time, he is holding on to bed rail with R hand-will continue to monitor through shift.
[2018-08-05 03:11] VITALS: BP 144/71
[2018-08-05 08:00] VITALS: BP 95/51
[2018-08-05 15:00] VITALS: BP 145/79
--- NOTE | 2018-08-05 19:04 | NUR ---
PT HAS REMAINED IN BED ON SHIFT PT TURNS SELF STAFF FEEDS, NO PAIN SYMTOMS NOTED. DOCTOR HERE TO SEE PATIENT NO NEW ORDERS.
[2018-08-05 20:40] VITALS: BP 91/66
[2018-08-06 04:55] LABS: HEMATOCRIT 37.8 % (42.0-52.0); HEMOGLOBIN 13.1 gm/dL (14.0-18.0); MCH 31.5 pg (26.0-34.0); MCHC 34.5 g/dL (28.0-37.0); MCV 91.2 fL (80.0-100.0); RBC 4.14 mil/uL (4.50-6.00); RDW 13.9 % (10.5-14.5); WBC 9.7 thou/uL (4.0-11.0)
[2018-08-06 05:06] LABS: CALCIUM 9.1 mg/dL (8.5-10.1); CREATININE 1.1 mg/dL (0.7-1.3); POTASSIUM 3.1 mmol/L (3.5-5.1)
[2018-08-06 05:10] VITALS: BP 134/82
[2018-08-06 07:28] VITALS: BP 157/73
--- NOTE | 2018-08-06 07:47 | NUR ---
progress pt slept most of shift, repositioned as tolerated, pt grabbibg hands and arms squeezing having to pry fingers off. vss, valencia intact continue poc.
--- NOTE | 2018-08-06 09:02 | NUR ---
PT IS MOSTLY NONVERBAL, ROOM AIR, LUNG SOUNDS CLEAR YET DIMINISHED, IS NOT IMPULSIVE THUS FAR, NEEDS TO BE FED, AIDE CLEANING HIM UP, NURSE REPLACED STAT LOCK ON BOTTOM OF LEG WITH SOME LEEWAY SO IT DOESN'T PULL, BED ALARM ON, NO INSULIN, BG 72 AND PT GETTING READY TO BE FED BY AIDE AFTER HIS BED BATH, UNKNOWN IN REPORT HOW HE AMBULATES, APPEARS VERY WEAK AND BED ALARM IS ON, TURN Q2. WILL CONTINUE TO MONITOR
[2018-08-06 13:55] VITALS: BP 158/82
[2018-08-06 19:27] VITALS: BP 121/57
[2018-08-07 03:14] VITALS: BP 135/59
--- NOTE | 2018-08-07 05:19 | NUR ---
ASSUMED CARE OF PT AT 1900HRS. PT IS EASILY AROUSED BUT IS NON VERBAL. PT GRABS ONTO STAFF AND BED RAILS WITH A VERY STRONG CLIENT TECHNICAL PROFESSIONAL. PT REPOSITIONS HIMSELF IN BED. EVA HAS DARK ELIGIO URINE WITH SEDIMENTS. PT SLEPT PART OF THE SHIFT. NO OTHER S/S OF ACUTE DISTRESS. WILL CONTINUE TO MONITOR.
[2018-08-07 05:55] LABS: HEMOGLOBIN 12.6 gm/dL (14.0-18.0); MCH 31.8 pg (26.0-34.0); MCHC 34.9 g/dL (28.0-37.0); RBC 3.95 mil/uL (4.50-6.00)
[2018-08-07 06:06] LABS: CALCIUM 8.8 mg/dL (8.5-10.1); POTASSIUM 3.2 mmol/L (3.5-5.1)
[2018-08-07 08:00] VITALS: BP 179/98
[2018-08-07 15:00] VITALS: BP 166/93
--- NOTE | 2018-08-07 16:36 | NUR ---
[facility] IS ABLE TO ACCEPT PT FOR ADMISSION THIS DAY. CHART COPY ORDERED. ORDERS HAVE BEEN FAXED. CM NOTIFIED PT'S DTR/GUARDIAN. SHE IS AWARE AND AGREEABLE WITH DISCHARGE TO [facility]. CM ARRANGED [facility] THROUGH [employer] TRIP # [id number] BETWEEN [phone]. NURSE IS TO CALL DTR ONCE THEY ARRIVE. REPORT TO BE CALLED TO . NO OTHER CM INTERVENTION INDICATED AT THIS TIME. CASE CLOSED.
[2018-08-07 17:15] VITALS: BP 166/93
--- NOTE | 2018-08-07 18:00 | NUR ---
PT IS ALERT TO THOSE AROUND HIM, NONAMBULATORY, NONVERBAL, MOSTLY, WILL SAY NO WITH CARES. 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 REMOVED VELASQUEZ PER DR. ADAME, OTHER RN HELPING REMOVED VELASQUEZ AND THERE WAS MINIMAL BLOOD. GAVE REPORT TO THE SOUTH AREA OF HIS RECEIVING FACILITY. WILL TEXT JOSEFA WHEN [facility] SHOWS UP PER OXYGEN THERAPIST REQUEST. IV REMOVED WELL
== END 2018-08-07 18:30 | DRG 64 ==
LOC: ER 19:28 → 4W 23:24 → EROBS 23:24 → EDBD 23:24 → 4W 07-26 00:27
PROVIDERS: Emergency Medicine; Hospitalist; Nurse Practitioner Family; Radiology Vascular & Interventional Radiology; Specialist; ADMIT Hospitalist
PROC: 00JU3ZZ Inspection of Spinal Canal, Percutaneous Approach (ICD-10-PCS; principal; 2018-07-25)
PROC: 009U3ZX Drainage of Spinal Canal, Percutaneous Approach, Diagnostic (ICD-10-PCS; 2018-07-27)
PROC: B01B1ZZ Fluoroscopy of Spinal Cord using Low Osmolar Contrast (ICD-10-PCS; 2018-07-27)
DX: I63.9 Cerebral infarction, unspecified (principal); G92 Toxic encephalopathy; F01.51 Vascular dementia, unspecified severity, with behavioral disturbance; M86.9 Osteomyelitis, unspecified; R41.0 Disorientation, unspecified; G47.00 Insomnia, unspecified; I10 Essential (primary) hypertension; E55.9 Vitamin D deficiency, unspecified; R13.10 Dysphagia, unspecified; Z79.899 Other long term (current) drug therapy
CPT/HCPCS: 10045; 10047